=== PATIENT | female | born 1960 | race Caucasian/White ===

== ENCOUNTER 2023-12-04 10:49 | Outpatient (AMB) | payer MEDICARE, OTHER, SELFPAY ==
--- NOTE | 2023-12-04 10:58 | A.SPINEOV_ITS ---
Intake Visit Reasons: back pain Intake Note: Ms. Letty Howard is here today c/o back pain. 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 HPI: This patient is well-known to me from a previous practice at [facility] where I corrected her degenerative scoliosis with an L3-L5 fusion 10 years ago. She states that in May 2023 she acutely developed left-sided back pain that since then has progress to a radiculopathy with the pain radiates to her thigh and the outside of her left ankle. The pain is constant and debilitating. She is currently in physical therapy. She has seen to product safety specialist in [place] that diagnosed her with left knee degeneration and offered her gel injections or possible knee replacement. She requested an MRI of the lumbar spine from their practice as she found it strange that the left knee would be responsible for an acute pain radiating from the back to her leg. She denies numbness or weakness. She is suffering from metastatic breast cancer for which he is receiving ongoing treatment. The treatment prevents her from taking pain medications. PMH: Mastectomy, appendectomy, cholecystectomy, hysterectomy Medications: Verzenio and Fulvestrant Allergies: Penicillin Social history: . Three children. Nonsmoker Physical Exam: Pleasant female. Straight leg raise is positive on the left side with radiating pain down the outside of her ankle. No motor or sensory deficits Radiological Studies: No imaging available for review. Impression/Plan: This patient is suffering from a left lumbar radiculopathy, most likely L5. She has a history of an L3-L5 lumbar fusion and she could well have developed adjacent degenerative disc disease L5-S1 with foraminal stenosis explaining her left radiculopathy. I would like to obtain an MRI of the lumbar spine to confirm this diagnosis. She will call me for the results. Thank you for allowing me to participate in your patients care. total time spent was 50 minutes in counseling ,coordination of plan, and subsequent plan Clint Hawley MD, PhD Spine Fellowship Trained Neurosurgeon Director, [facility] Orders: Orders MR lumbar spine wo con Today M54.16 - Radiculopathy, lumbar region Coding Level of Care Code New Pt Level 4 (36017) Diagnoses Lumbar radiculopathy, acute M54.16
== END 2023-12-04 12:01 | disposition home or self-care (01) ==
PROVIDERS: Visit Provider Neurological Surgery
DX: M54.16 Radiculopathy, lumbar region (principal)
CPT/HCPCS: 99204

== ENCOUNTER → 2023-12-04 10:49 | Outpatient (BNVA) | payer MEDICARE, OTHER, SELFPAY | PROVIDERS: Visit Provider Neurological Surgery | DX: M54.16 Radiculopathy, lumbar region (principal) | CPT/HCPCS: 99202 ==